=== PATIENT | female | born 1955 | race Caucasian/White ===

== ENCOUNTER 2016-05-21 13:15 | Inpatient (IN) | payer MEDICARE, BC ==
--- NOTE | 2016-05-21 18:08 | History and Physical Report ---
History of Present Illnes - History of Present Illness Reason for Visit: gait disturbance, pneumonia History of Present Illness: 61yo wite female who recetnly was admitted to [facility] for bilateral basilar pneumonia. Was started on triple antibiotic therapy of vancomycin, Zosyn and azithromycin. Blood cultures are no growth, sputum culture report is not known at this time. During her stay patient has become weak and felt that she would benefit from further rehab services. - Past Medical History Cardiac: HTN Pulmonary: COPD REFUND SPECIALIST: CVA, Dementia, Seizure, Other (Parkinson Disease, RLS) Gastrointestinal: GERD Musculoskeletal: Osteoarthritis (generalized) Endocrine: Diabetes (type 2) - Past Surgical History Past Surgical History: Hysterectomy, Other (BTL, D&C, carpal tunnel release, L shoulder surgery, Left total knee replacement) - Past Family History Father Family History: CAD, Mother Family History: denies: Brother 1 Family History: None (good health). denies: Sister 1 Family History: None (good health). denies: - Past Social History Smoke: Quit (1989) Alcohol: None Drugs: None Lives: With Family () - Health Maintenance Health Maintenance: Influenza Vaccine. denies: Pneumococcal Vaccine Influenza Vaccine: Current for this Influenza Season Pneumonia Vaccine: No Resuscitation Status: Resusciation Status Resuscitation Status Full Code - Unable to Obtain History Unable to Obtain: No Review of Systems - Review of Systems Constitutional: Fever, Chills (improved) Eyes: negative: pain, vision change ENT: negative: Ear Discharge, Nose Pain, Nose Discharge, Nose Congestion, Mouth Pain, Mouth Swelling Respiratory: Cough Cardiovascular: negative: Chest Pain, Palpitations, Orthopnea Gastrointestinal: Nausea, Constipation. negative: Vomiting, Abdominal Pain, Diarrhea Genitourinary: negative: Dysuria, Frequency Musculoskeletal: Shoulder Pain, Back Pain. negative: Neck Pain Skin: negative: Rash, Lesions Neurological: Weakness. negative: Numbness, Incoordination - Medications/Allergies Allergies/Adverse Reactions: Allergies Allergy/AdvReac Type Severity Reaction Status Date / Time furosemide [From Lasix] Allergy Verified 05/23/16 09:13 hydrochlorothiazide Allergy Verified 05/23/16 09:13 [From Maxzide] olmesartan medoxomil Allergy Verified 05/23/16 09:13 [From Benicar] triamterene [From Maxzide] Allergy Verified 05/23/16 09:13 Current Inpatient Medications: Current Inpatient Medications Enoxaparin Sodium (Lovenox) 30 mg SQ QD OBED Stop: 06/03/16 18:01 Exam - Exam General: Alert, Oriented to Person, Oriented to Place, Oriented to Time, Cooperative HEENT: Atraumatic, PERRLA, Mouth Mucous membr. moist/[place], Nose Mucous membr. moist/[place], Hearing Grossly Normal Neck: Normal Range of Motion, Lymphadenopathy Carotids: WNL Thyroid: WNL Lungs: Normal air movement, Speaks full Sentences, Rales (rales in te righ base) . No: Wheezes, Rhonchi, Prolonged Expiration Cardiovascular: Regular rate, Normal S1, Normal S2, No murmurs Abdomen: Normal bowel sounds, Soft, No tenderness, No hepatospenomegaly, No masses Integumentary: Normal, [place], Warm, Dry Extremities: No clubbing, No cyanosis, No edema Neurological: Normal speech, Strength Equal Bilat. No: Normal gait Psych/Mental Status: Mental status NL, Appropriate Affect. No: Mood NL ( depressed) Assessment/Plan - Assessment/Plan (1) Pneumonia of both lower lobes Status: Acute Assessment: Will finish IV antibiotics (2) Parkinson disease Status: Acute Assessment: continue wit home meds (3) COPD (chronic obstructive pulmonary disease) Status: Chronic Assessment: continue wit home meds and monitor (4) Essential hypertension Status: Acute Assessment: continue wit home meds and monitor (5) Diabetes type 2, controlled Status: Chronic Qualifiers: Diabetes mellitus complication status: with neurologic complications Diabetes mellitus fpc insulin use: without fpc use (6) Restless leg syndrome Status: Acute Assessment: continue wit home meds (7) Osteoarthritis Status: Acute Assessment: monitor (8) GERD (gastroesophageal reflux disease) Status: Acute Assessment: continue wit home meds (9) Gait difficulty Status: Acute Plan: Pt and OT evaluation VTE Assessment - RISK FACTOR SCORE VTE RISK FACTOR SCORES: AGE OVER 60 YEARS, ACUTE INFECTION OTHER THEN SEPSIS, ANTICIPATED BED CONFINEMENT OR IMMOBILIZATION > 24 HOURS - RISK VTE HIGH RISK: SCORE OF 3-4 (RISK PROXIMAL DVT 4-8%) PROPHYLAXIS NEEDED
[2016-05-21] MEDS ORDERED: PNEUMOCOCCAL 23-VAL IM ONE (18:29)
[2016-05-21 19:05] VITALS: BMI 37.9
[2016-05-21] MEDS: ENOXAPARIN SODIUM 30 MG/0.3 ML DISP.SYRIN SQ SCH (19:32)
[2016-05-21] MEDS: MONTELUKAST SODIUM 10 MG TABLET PO SCH (19:33)
[2016-05-21] MEDS: DEXTROMETHORPHAN HBR/QUINIDINE 1 EACH CAPSULE PO SCH (19:33)
[2016-05-21] MEDS: SIMVASTATIN 40 MG TABLET PO SCH (19:34)
[2016-05-21] MEDS: TOPIRAMATE 50 MG TABLET PO SCH (19:34)
[2016-05-21] MEDS: INSULIN DETEMIR 100 UNIT/ML 3ML PEN.INJCTR SQ SCH (19:56)
[2016-05-21] MEDS ORDERED: VANCOMYCIN HCL 1 GM VIAL IV ONE (20:07)
[2016-05-21] MEDS ORDERED: 0.9 % SODIUM CHLORIDE 250 ML IV ONE (20:07)
[2016-05-21] MEDS ORDERED: PIPERACILLIN SODIUM/TAZOBACTAM 3.375 GM VIAL IV ONE (20:07)
[2016-05-21] MEDS ORDERED: 0.9 % SODIUM CHLORIDE 50 ML IV ONE (20:08)
[2016-05-21] MEDS ORDERED: SALINE FLUSH 10 ML DISP.SYRIN IVF ONE (20:08)
[2016-05-21] MEDS: SODIUM CHLORIDE 0.9% IV SCH (20:22)
[2016-05-21] MEDS: VANCOMYCIN HCL IV SCH (20:22)
[2016-05-21] MEDS: PIPERACILLIN SODIUM/TAZOBACTAM 3.375 GM in 0.9 % SODIUM CHLORIDE 50 ML IV SCH (21:30)
[2016-05-22] MEDS ORDERED: PIPERACILLIN SODIUM/TAZOBACTAM 3.375 GM VIAL IV ONE ×2 (02:16→06:31)
[2016-05-22] MEDS ORDERED: 0.9 % SODIUM CHLORIDE 50 ML IV ONE ×2 (02:17→06:31)
[2016-05-22] MEDS: PIPERACILLIN SODIUM/TAZOBACTAM 3.375 GM in 0.9 % SODIUM CHLORIDE 50 ML IV SCH ×2 (02:30→07:35)
[2016-05-22] MEDS ORDERED: predniSONE 20 MG TABLET PO ONE (05:04)
[2016-05-22] MEDS ORDERED: ASPIRIN EC 81 MG TABLET.DR ONE (05:05)
[2016-05-22] MEDS: PANTOPRAZOLE SODIUM 40 MG TABLET PO SCH (06:08)
[2016-05-22] MEDS: INSULIN REGULAR, HUMAN 100 UNIT/ML 3ML VIAL SQ SCH ×3 (07:30→17:13)
[2016-05-22] MEDS ORDERED: SALINE FLUSH 10 ML DISP.SYRIN IVF ONE ×3 (07:36→14:18)
[2016-05-22] MEDS: ASPIRIN 81 MG CHEW TAB PO SCH (09:13)
[2016-05-22] MEDS: predniSONE 10 MG TABLET PO SCH (09:14)
[2016-05-22] MEDS: TOPIRAMATE 50 MG TABLET PO SCH ×2 (09:15→19:40)
[2016-05-22] MEDS: BACLOFEN 10 MG TABLET PO SCH (09:15)
[2016-05-22] MEDS: DEXTROMETHORPHAN HBR/QUINIDINE 1 EACH CAPSULE PO SCH ×2 (09:18→19:39)
[2016-05-22] MEDS: HEPARIN SODIUM,PORCINE 30 UNITS INJ IV SCH (12:05)
[2016-05-22] MEDS: PIPERACILLIN SODIUM/TAZOBACTAM 3.375 GM in 0.9 % SODIUM CHLORIDE 100 ML IV SCH ×2 (13:02→18:32)
[2016-05-22] MEDS: ACETAMINOPHEN 500 MG TABLET PO PRN (14:15)
[2016-05-22] MEDS: ENOXAPARIN SODIUM 30 MG/0.3 ML DISP.SYRIN SQ SCH (18:13)
[2016-05-22] MEDS: MONTELUKAST SODIUM 10 MG TABLET PO SCH (19:40)
[2016-05-22] MEDS: SIMVASTATIN 40 MG TABLET PO SCH (19:41)
[2016-05-22] MEDS: clonazePAM 0.5 MG TABLET PO PRN (19:41)
[2016-05-22] MEDS: INSULIN DETEMIR 100 UNIT/ML 3ML PEN.INJCTR SQ SCH (19:42)
[2016-05-22] MEDS: VANCOMYCIN HCL IV SCH (21:13)
[2016-05-22] MEDS: SODIUM CHLORIDE 0.9% IV SCH (21:13)
[2016-05-23] MEDS: PIPERACILLIN SODIUM/TAZOBACTAM 3.375 GM in 0.9 % SODIUM CHLORIDE 100 ML IV SCH ×4 (00:53→17:50)
[2016-05-23] MEDS ORDERED: SALINE FLUSH 10 ML DISP.SYRIN IVF ONE ×2 (00:58→17:52)
[2016-05-23] MEDS: clonazePAM 0.5 MG TABLET PO PRN ×2 (01:03→17:57)
[2016-05-23] MEDS: PANTOPRAZOLE SODIUM 40 MG TABLET PO SCH (05:29)
[2016-05-23] MEDS: INSULIN REGULAR, HUMAN 100 UNIT/ML 3ML VIAL SQ SCH ×3 (07:20→16:35)
[2016-05-23] MEDS: BACLOFEN 10 MG TABLET PO SCH (09:05)
[2016-05-23] MEDS: TOPIRAMATE 50 MG TABLET PO SCH ×2 (09:06→21:12)
[2016-05-23] MEDS: predniSONE 10 MG TABLET PO SCH (09:06)
[2016-05-23] MEDS: HEPARIN SODIUM,PORCINE 30 UNITS INJ IV SCH (09:07)
[2016-05-23] MEDS: DEXTROMETHORPHAN HBR/QUINIDINE 1 EACH CAPSULE PO SCH ×2 (09:07→21:13)
[2016-05-23] MEDS: ACETAMINOPHEN 500 MG TABLET PO PRN ×3 (09:10→23:28)
[2016-05-23] MEDS: ASPIRIN 81 MG CHEW TAB PO SCH (09:10)
[2016-05-23] MEDS ORDERED: PNEUMOCOCCAL 23-VAL IM ONE (16:25)
[2016-05-23] MEDS: ENOXAPARIN SODIUM 30 MG/0.3 ML DISP.SYRIN SQ SCH (17:52)
[2016-05-23] MEDS: SODIUM CHLORIDE 0.9% IV SCH (18:50)
[2016-05-23] MEDS: VANCOMYCIN HCL IV SCH (18:50)
[2016-05-23] MEDS: SIMVASTATIN 40 MG TABLET PO SCH (21:12)
[2016-05-23] MEDS: MONTELUKAST SODIUM 10 MG TABLET PO SCH (21:13)
[2016-05-23] MEDS: INSULIN DETEMIR 100 UNIT/ML 3ML PEN.INJCTR SQ SCH (21:16)
[2016-05-24] MEDS ORDERED: SALINE FLUSH 10 ML DISP.SYRIN IVF ONE ×5 (00:14→18:32)
[2016-05-24] MEDS: PIPERACILLIN SODIUM/TAZOBACTAM 3.375 GM in 0.9 % SODIUM CHLORIDE 100 ML IV SCH ×4 (00:14→17:22)
[2016-05-24] MEDS: PANTOPRAZOLE SODIUM 40 MG TABLET PO SCH (05:45)
[2016-05-24] MEDS: INSULIN REGULAR, HUMAN 100 UNIT/ML 3ML VIAL SQ SCH ×3 (08:09→17:24)
[2016-05-24] MEDS: ASPIRIN 81 MG CHEW TAB PO SCH (08:10)
[2016-05-24] MEDS: HEPARIN SODIUM,PORCINE 30 UNITS INJ IV SCH (08:11)
[2016-05-24] MEDS: TOPIRAMATE 50 MG TABLET PO SCH ×2 (08:11→20:57)
[2016-05-24] MEDS: predniSONE 10 MG TABLET PO SCH (08:11)
[2016-05-24] MEDS: DEXTROMETHORPHAN HBR/QUINIDINE 1 EACH CAPSULE PO SCH ×2 (08:12→20:58)
[2016-05-24] MEDS: BACLOFEN 10 MG TABLET PO SCH (08:12)
[2016-05-24] MEDS: clonazePAM 0.5 MG TABLET PO PRN (12:03)
[2016-05-24] MEDS: ENOXAPARIN SODIUM 30 MG/0.3 ML DISP.SYRIN SQ SCH (17:27)
[2016-05-24] MEDS: SODIUM CHLORIDE 0.9% IV SCH (18:35)
[2016-05-24] MEDS: VANCOMYCIN HCL IV SCH (18:35)
[2016-05-24] MEDS: SIMVASTATIN 40 MG TABLET PO SCH (20:57)
[2016-05-24] MEDS: MONTELUKAST SODIUM 10 MG TABLET PO SCH (20:58)
[2016-05-24] MEDS: INSULIN DETEMIR 100 UNIT/ML 3ML PEN.INJCTR SQ SCH (20:59)
[2016-05-25] MEDS: clonazePAM 0.5 MG TABLET PO PRN ×2 (00:19→23:33)
[2016-05-25] MEDS: ACETAMINOPHEN 500 MG TABLET PO PRN ×2 (00:19→23:33)
[2016-05-25] MEDS: PIPERACILLIN SODIUM/TAZOBACTAM 3.375 GM in 0.9 % SODIUM CHLORIDE 100 ML IV SCH ×5 (00:20→23:33)
[2016-05-25] MEDS: PANTOPRAZOLE SODIUM 40 MG TABLET PO SCH (06:12)
[2016-05-25] MEDS ORDERED: SALINE FLUSH 10 ML DISP.SYRIN IVF ONE ×2 (07:28→18:29)
[2016-05-25] MEDS: INSULIN REGULAR, HUMAN 100 UNIT/ML 3ML VIAL SQ SCH ×3 (07:41→16:49)
[2016-05-25] MEDS: TOPIRAMATE 50 MG TABLET PO SCH ×2 (08:55→20:23)
[2016-05-25] MEDS: DEXTROMETHORPHAN HBR/QUINIDINE 1 EACH CAPSULE PO SCH ×2 (08:55→20:26)
[2016-05-25] MEDS: BACLOFEN 10 MG TABLET PO SCH (08:55)
[2016-05-25] MEDS: predniSONE 10 MG TABLET PO SCH (08:55)
[2016-05-25] MEDS: ASPIRIN 81 MG CHEW TAB PO SCH (08:55)
[2016-05-25] MEDS ORDERED: predniSONE 10 MG TABLET PO SCH (09:00)
[2016-05-25] MEDS: HEPARIN SODIUM,PORCINE 30 UNITS INJ IV SCH (10:47)
[2016-05-25] MEDS ORDERED: 0.9 % SODIUM CHLORIDE 200 ML IV ONE (18:01)
[2016-05-25] MEDS: ENOXAPARIN SODIUM 30 MG/0.3 ML DISP.SYRIN SQ SCH (18:26)
[2016-05-25] MEDS: INSULIN DETEMIR 100 UNIT/ML 3ML PEN.INJCTR SQ SCH (20:23)
[2016-05-25] MEDS: MONTELUKAST SODIUM 10 MG TABLET PO SCH (20:23)
[2016-05-25] MEDS: SIMVASTATIN 40 MG TABLET PO SCH (20:23)
[2016-05-25] MEDS: VANCOMYCIN HCL IV SCH (20:25)
[2016-05-25] MEDS: SODIUM CHLORIDE 0.9% IV SCH (20:25)
[2016-05-26] MEDS: PIPERACILLIN SODIUM/TAZOBACTAM 3.375 GM in 0.9 % SODIUM CHLORIDE 100 ML IV SCH ×3 (06:00→18:24)
[2016-05-26] MEDS ORDERED: SALINE FLUSH 10 ML DISP.SYRIN IVF ONE (07:43)
[2016-05-26] MEDS: PANTOPRAZOLE SODIUM 40 MG TABLET PO SCH (07:43)
[2016-05-26] MEDS: INSULIN REGULAR, HUMAN 100 UNIT/ML 3ML VIAL SQ SCH ×3 (08:47→16:44)
[2016-05-26] MEDS ORDERED: 0.9 % SODIUM CHLORIDE 100 ML IV ONE (09:13)
[2016-05-26] MEDS: BACLOFEN 10 MG TABLET PO SCH (09:18)
[2016-05-26] MEDS: DEXTROMETHORPHAN HBR/QUINIDINE 1 EACH CAPSULE PO SCH ×2 (09:18→23:04)
[2016-05-26] MEDS: ASPIRIN 81 MG CHEW TAB PO SCH (09:18)
[2016-05-26] MEDS: predniSONE 10 MG TABLET PO SCH (09:18)
[2016-05-26] MEDS: TOPIRAMATE 50 MG TABLET PO SCH ×2 (09:19→22:00)
[2016-05-26] MEDS: HEPARIN SODIUM,PORCINE 30 UNITS INJ IV SCH (09:31)
[2016-05-26] MEDS ORDERED: PIPERACILLIN SODIUM/TAZOBACTAM 3.375 GM VIAL IV ONE (09:44)
[2016-05-26] MEDS ORDERED: 0.9 % SODIUM CHLORIDE 200 ML IV ONE (09:55)
[2016-05-26] MEDS: ENOXAPARIN SODIUM 30 MG/0.3 ML DISP.SYRIN SQ SCH (18:23)
[2016-05-26] MEDS: SODIUM CHLORIDE 0.9% IV SCH (22:00)
[2016-05-26] MEDS: SIMVASTATIN 40 MG TABLET PO SCH (22:00)
[2016-05-26] MEDS: VANCOMYCIN HCL IV SCH (22:00)
[2016-05-26] MEDS: MONTELUKAST SODIUM 10 MG TABLET PO SCH (22:00)
[2016-05-26] MEDS: clonazePAM 0.5 MG TABLET PO PRN (22:00)
[2016-05-26] MEDS: ACETAMINOPHEN 500 MG TABLET PO PRN (22:00)
[2016-05-27] MEDS: INSULIN DETEMIR 100 UNIT/ML 3ML PEN.INJCTR SQ SCH ×2 (00:28→21:03)
[2016-05-27] MEDS ORDERED: SALINE FLUSH 10 ML DISP.SYRIN IVF ONE ×4 (01:30→19:22)
[2016-05-27] MEDS: PIPERACILLIN SODIUM/TAZOBACTAM 3.375 GM in 0.9 % SODIUM CHLORIDE 100 ML IV SCH ×5 (05:00→18:09)
[2016-05-27] MEDS: PANTOPRAZOLE SODIUM 40 MG TABLET PO SCH (06:26)
[2016-05-27] MEDS: TOPIRAMATE 50 MG TABLET PO SCH ×2 (08:30→20:55)
[2016-05-27] MEDS: INSULIN REGULAR, HUMAN 100 UNIT/ML 3ML VIAL SQ SCH ×3 (08:30→18:31)
[2016-05-27] MEDS: predniSONE 10 MG TABLET PO SCH (08:31)
[2016-05-27] MEDS: ASPIRIN 81 MG CHEW TAB PO SCH (08:31)
[2016-05-27] MEDS: BACLOFEN 10 MG TABLET PO SCH (08:32)
[2016-05-27] MEDS: HEPARIN SODIUM,PORCINE 30 UNITS INJ IV SCH (08:32)
[2016-05-27] MEDS: DEXTROMETHORPHAN HBR/QUINIDINE 1 EACH CAPSULE PO SCH ×2 (08:32→20:57)
[2016-05-27] MEDS: ENOXAPARIN SODIUM 30 MG/0.3 ML DISP.SYRIN SQ SCH (18:08)
[2016-05-27] MEDS: VANCOMYCIN HCL IV SCH (20:05)
[2016-05-27] MEDS: SODIUM CHLORIDE 0.9% IV SCH (20:05)
[2016-05-27] MEDS: MONTELUKAST SODIUM 10 MG TABLET PO SCH (20:55)
[2016-05-27] MEDS: SIMVASTATIN 40 MG TABLET PO SCH (20:55)
[2016-05-27] MEDS: ACETAMINOPHEN 500 MG TABLET PO PRN (21:03)
[2016-05-27] MEDS: clonazePAM 0.5 MG TABLET PO PRN (21:03)
[2016-05-28] MEDS ORDERED: SALINE FLUSH 10 ML DISP.SYRIN IVF ONE ×2 (00:25→05:14)
[2016-05-28] MEDS: PIPERACILLIN SODIUM/TAZOBACTAM 3.375 GM in 0.9 % SODIUM CHLORIDE 100 ML IV SCH ×4 (00:35→17:59)
[2016-05-28] MEDS: SALINE FLUSH 10 ML DISP.SYRIN IV PRN ×2 (06:09→18:06)
[2016-05-28] MEDS: PANTOPRAZOLE SODIUM 40 MG TABLET PO SCH (06:10)
[2016-05-28] MEDS: INSULIN REGULAR, HUMAN 100 UNIT/ML 3ML VIAL SQ SCH ×3 (07:24→16:30)
[2016-05-28] MEDS: predniSONE 10 MG TABLET PO SCH (08:45)
[2016-05-28] MEDS: BACLOFEN 10 MG TABLET PO SCH (08:45)
[2016-05-28] MEDS: DEXTROMETHORPHAN HBR/QUINIDINE 1 EACH CAPSULE PO SCH ×2 (08:46→20:23)
[2016-05-28] MEDS: ASPIRIN 81 MG CHEW TAB PO SCH (08:46)
[2016-05-28] MEDS: TOPIRAMATE 50 MG TABLET PO SCH ×2 (08:46→20:23)
[2016-05-28] MEDS: HEPARIN SODIUM,PORCINE 30 UNITS INJ IV SCH (08:47)
[2016-05-28] MEDS: NYSTATIN POWDER BOTTLE TP SCH (10:45)
[2016-05-28] MEDS: ENOXAPARIN SODIUM 30 MG/0.3 ML DISP.SYRIN SQ SCH (17:59)
[2016-05-28] MEDS: SODIUM CHLORIDE 0.9% IV SCH (19:06)
[2016-05-28] MEDS: VANCOMYCIN HCL IV SCH (19:06)
[2016-05-28] MEDS: clonazePAM 0.5 MG TABLET PO PRN (20:23)
[2016-05-28] MEDS: SIMVASTATIN 40 MG TABLET PO SCH (20:23)
[2016-05-28] MEDS: ACETAMINOPHEN 500 MG TABLET PO PRN (20:23)
[2016-05-28] MEDS: MONTELUKAST SODIUM 10 MG TABLET PO SCH (20:23)
[2016-05-28] MEDS: INSULIN DETEMIR 100 UNIT/ML 3ML PEN.INJCTR SQ SCH (20:28)
[2016-05-29] MEDS: PIPERACILLIN SODIUM/TAZOBACTAM 3.375 GM in 0.9 % SODIUM CHLORIDE 100 ML IV SCH ×4 (00:08→18:58)
[2016-05-29] MEDS: NYSTATIN POWDER BOTTLE TP SCH ×3 (01:21→21:16)
[2016-05-29] MEDS: PANTOPRAZOLE SODIUM 40 MG TABLET PO SCH (06:08)
[2016-05-29] MEDS: INSULIN REGULAR, HUMAN 100 UNIT/ML 3ML VIAL SQ SCH ×3 (07:49→17:06)
[2016-05-29] MEDS: ASPIRIN 81 MG CHEW TAB PO SCH (09:19)
[2016-05-29] MEDS: predniSONE 10 MG TABLET PO SCH (09:20)
[2016-05-29] MEDS: BACLOFEN 10 MG TABLET PO SCH (09:20)
[2016-05-29] MEDS: TOPIRAMATE 50 MG TABLET PO SCH ×2 (09:22→21:38)
[2016-05-29] MEDS: DEXTROMETHORPHAN HBR/QUINIDINE 1 EACH CAPSULE PO SCH ×2 (09:27→21:27)
[2016-05-29] MEDS: HEPARIN SODIUM,PORCINE 30 UNITS INJ IV SCH (09:29)
[2016-05-29] MEDS ORDERED: SENNOSIDES 8.6 MG TABLET PO ONE (12:58)
--- NOTE | 2016-05-29 12:59 | Inpatient Progress Note ---
Subjective - Required Recertification Statement I anticipate X number of days because-include discharge plan: 20 - Review of Systems Events since last encounter: Patient continues to do well at this time. Patient continues to require oxygen therapy. Patient ambulatory status is slowly improving. Patient diabetes mellitus has been stable. Patient has developed a rash under her breath consistent with Angelita infection. Pulmonary: Dyspnea (with exertion), Cough. Denies: Pleuritic Chest Pain Cardiovascular: Denies: Chest Pain Gastrointestinal: Denies: Abdominal Pain, Constipation Objective - Exam Vitals and I&O: Vital Signs Temp 97.6 F 05/29/16 09:00 Pulse 80 05/29/16 09:00 Resp 20 05/29/16 09:00 BP 163/71 05/29/16 09:00 Pulse Ox 91 L 05/29/16 09:00 Intake & Output 05/28/16 05/29/16 05/29/16 23:59 11:59 23:59 Intake Total 240 240 Balance 240 240 Intake: Oral 240 240 Other: Voiding Method Toilet # Voids 6 # Bowel Movements 1 General: Alert, Oriented to Person, Cooperative Neck: Supple Lungs: Clear to auscultation, Normal air movement, Speaks full Sentences. No: Wheezes, Rales, Rhonchi Cardiovascular: Regular rate, Normal S1, Normal S2 Abdomen: Normal bowel sounds, Soft, No tenderness Skin: Other (monial rash under breast) Neurological: Generalized Weakness Psych/Mental Status: Mental status NL, Mood NL, Appropriate Affect, Intact Judgment - Results Results: Laboratory Results Vancomycin Trough 6.7 ug/mL (10.0-20.0) L 05/22/16 21:00 Assessment/Plan - Assessment/Plan (1) Gait difficulty Status: Acute Assessment: improved (2) Pneumonia of both lower lobes Status: Acute Assessment: stable (3) Parkinson disease Status: Acute Assessment: stable (4) COPD (chronic obstructive pulmonary disease) Status: Chronic Assessment: stable (5) Essential hypertension Status: Acute (6) Diabetes type 2, controlled Status: Chronic Qualifiers: Diabetes mellitus complication status: with neurologic complications Diabetes mellitus usp insulin use: without usp use Assessment: stable (7) Osteoarthritis Status: Acute Assessment: stable (8) Monilia infection Status: Acute Assessment: started treatment
--- NOTE | 2016-05-29 12:59 | Inpatient Progress Note ---
Subjective - Required Recertification Statement I anticipate X number of days because-include discharge plan: 10 - Review of Systems Events since last encounter: Patient continued to do well at this time. Patient continued with antibiotic therapy at this time. The money appears to be resolving. Patient's ability to ambulate and transfer is improved. General: Denies: Chills Gastrointestinal: Denies: Nausea, Vomiting, Constipation Objective - Exam Vitals and I&O: Vital Signs Temp 97.6 F 05/29/16 09:00 Pulse 80 05/29/16 09:00 Resp 20 05/29/16 09:00 BP 163/71 05/29/16 09:00 Pulse Ox 91 L 05/29/16 09:00 Intake & Output 05/28/16 05/29/16 05/29/16 23:59 11:59 23:59 Intake Total 240 240 Balance 240 240 Intake: Oral 240 240 Other: Voiding Method Toilet # Voids 6 # Bowel Movements 1 General: Alert, Oriented to Person, Oriented to Place, Oriented to Time, Cooperative Neck: Supple Lungs: Clear to auscultation, Normal air movement, Speaks full Sentences. No: Respiratory Distress, Wheezes, Rales, Rhonchi Cardiovascular: Regular rate, Normal S1, Normal S2, No murmurs - Results Results: Laboratory Results Vancomycin Trough 6.7 ug/mL (10.0-20.0) L 05/22/16 21:00 Assessment/Plan - Assessment/Plan (1) Pneumonia of both lower lobes Status: Acute Assessment: Improved (2) Parkinson disease Status: Acute Assessment: stable (3) COPD (chronic obstructive pulmonary disease) Status: Chronic Assessment: stable (4) Essential hypertension Status: Acute (5) Diabetes type 2, controlled Status: Chronic Qualifiers: Diabetes mellitus complication status: with neurologic complications Diabetes mellitus fpc insulin use: without fpc use Assessment: stable (6) Osteoarthritis Status: Acute (7) Gait difficulty Status: Acute
[2016-05-29] MEDS: ENOXAPARIN SODIUM 30 MG/0.3 ML DISP.SYRIN SQ SCH (17:35)
[2016-05-29] MEDS ORDERED: VANCOMYCIN HCL 1.25 GM in 0.9 % SODIUM CHLORIDE 500 ML IV ONE (20:24)
[2016-05-29] MEDS ORDERED: VANCOMYCIN HCL 1 GM VIAL IV ONE (20:54)
[2016-05-29] MEDS ORDERED: 0.9 % SODIUM CHLORIDE 250 ML IV ONE (20:55)
[2016-05-29] MEDS: SALINE FLUSH 10 ML DISP.SYRIN IV PRN (21:19)
[2016-05-29] MEDS: SIMVASTATIN 40 MG TABLET PO SCH (21:28)
[2016-05-29] MEDS: INSULIN DETEMIR 100 UNIT/ML 3ML PEN.INJCTR SQ SCH (21:35)
[2016-05-29] MEDS: ACETAMINOPHEN 500 MG TABLET PO PRN (21:38)
[2016-05-29] MEDS: clonazePAM 0.5 MG TABLET PO PRN (21:38)
[2016-05-29] MEDS: MONTELUKAST SODIUM 10 MG TABLET PO SCH (21:38)
[2016-05-30] MEDS: PIPERACILLIN SODIUM/TAZOBACTAM 3.375 GM in 0.9 % SODIUM CHLORIDE 100 ML IV SCH ×4 (00:21→17:22)
[2016-05-30] MEDS: SALINE FLUSH 10 ML DISP.SYRIN IV PRN ×2 (01:00→05:54)
[2016-05-30] MEDS: clonazePAM 0.5 MG TABLET PO PRN (04:11)
[2016-05-30] MEDS: PANTOPRAZOLE SODIUM 40 MG TABLET PO SCH (05:52)
[2016-05-30] MEDS: INSULIN REGULAR, HUMAN 100 UNIT/ML 3ML VIAL SQ SCH ×3 (07:12→16:28)
[2016-05-30] MEDS: ASPIRIN 81 MG CHEW TAB PO SCH (09:26)
[2016-05-30] MEDS: predniSONE 10 MG TABLET PO SCH (09:27)
[2016-05-30] MEDS: TOPIRAMATE 50 MG TABLET PO SCH ×2 (09:28→21:27)
[2016-05-30] MEDS: DEXTROMETHORPHAN HBR/QUINIDINE 1 EACH CAPSULE PO SCH ×2 (09:28→21:28)
[2016-05-30] MEDS: BACLOFEN 10 MG TABLET PO SCH (09:29)
[2016-05-30] MEDS: NYSTATIN POWDER BOTTLE TP SCH ×2 (09:29→21:28)
[2016-05-30] MEDS: HEPARIN SODIUM,PORCINE 30 UNITS INJ IV SCH (10:20)
[2016-05-30] MEDS ORDERED: LORATADINE 10 MG TABLET PO ONE (13:18)
[2016-05-30] MEDS: ENOXAPARIN SODIUM 30 MG/0.3 ML DISP.SYRIN SQ SCH (17:18)
[2016-05-30] MEDS ORDERED: VANCOMYCIN HCL 1.25 GM in 0.9 % SODIUM CHLORIDE 500 ML IV ONE (20:00)
[2016-05-30] MEDS: SIMVASTATIN 40 MG TABLET PO SCH (21:27)
[2016-05-30] MEDS: MONTELUKAST SODIUM 10 MG TABLET PO SCH (21:27)
[2016-05-30] MEDS: INSULIN DETEMIR 100 UNIT/ML 3ML PEN.INJCTR SQ SCH (21:31)
[2016-05-30] MEDS ORDERED: 0.9 % SODIUM CHLORIDE 250 ML IV ONE (21:38)
[2016-05-31] MEDS: PIPERACILLIN SODIUM/TAZOBACTAM 3.375 GM in 0.9 % SODIUM CHLORIDE 100 ML IV SCH ×2 (00:03→06:20)
[2016-05-31] MEDS: clonazePAM 0.5 MG TABLET PO PRN (00:03)
[2016-05-31] MEDS: PANTOPRAZOLE SODIUM 40 MG TABLET PO SCH (06:20)
[2016-05-31] MEDS: INSULIN REGULAR, HUMAN 100 UNIT/ML 3ML VIAL SQ SCH (08:22)
[2016-05-31 10:42] VITALS: BP 167/63
--- NOTE | 2016-06-26 08:13 | Discharge Summary ---
Discharge Summary - Discharge Sumary History of Present Illness: 61yo wite female who recetnly was admitted to [facility] for bilateral basilar pneumonia. Was started on triple antibiotic therapy of vancomycin, Zosyn and azithromycin. Blood cultures are no growth, sputum culture report is not known at this time. During her stay patient has become weak and felt that she would benefit from further rehab services. Patient will be continued IV antibiotic therapy at this time to finish the course of it via PICC. Home Medications: Ambulatory Orders Medication Instructions Recorded Carbidopa/Levodopa 06/19/12 [Carbidopa-Levodopa 25-100 Tab] Escitalopram Oxalate [Lexapro] 06/19/12 Glyburide [Diabeta] 5 mg PO 06/19/12 Lansoprazole 06/19/12 Lisinopril [Prinivil] 10 mg PO 06/19/12 Metformin HCl [Fortamet] 500 mg PO 06/19/12 Ropinirole HCl 06/19/12 Simvastatin [Zocor] 5 mg PO 06/19/12 Topiramate 06/19/12 Acetaminophen [Tylenol Extra 500 mg PO TID PRN #0 tablet 05/31/16 Strength] Aspirin [Shantal] 81 mg PO DAILY tab.chew 05/31/16 Baclofen [Liorasal] 10 mg PO D tablet 05/31/16 Dextromethorphan HBr/Quinidine 1 each PO BID capsule 05/31/16 [Nuedexta] Insulin Detemir [Levemir Flex-Pen] 10 unit SQ HS pen.injctr 05/31/16 Montelukast Sodium [Singulair] 10 mg PO HS tablet 05/31/16 Nystatin Powder [Nystop] 1 applic TP BID PRN #1 bottle 05/31/16 clonazePAM [Klonopin] 0.5 mg PO BID PRN #0 tablet 05/31/16 Procedures this Visit: None Allergies/Adverse Reactions: Allergies Allergy/AdvReac Type Severity Reaction Status Date / Time furosemide [From Lasix] Allergy Verified 05/23/16 09:13 hydrochlorothiazide Allergy Verified 05/23/16 09:13 [From Maxzide] olmesartan medoxomil Allergy Verified 05/23/16 09:13 [From Benicar] triamterene [From Maxzide] Allergy Verified 05/23/16 09:13 Discharge Summary: Patient did well during SNF course. Patient was able and willing to participate in PT and OT services. At the time of discharge she was ambulating with the aid of a walker. It was felt that she could benefit form Home Health OT and PT for a short period of time. Patient's breathing status remained stable but patient required oxygen at 2 liters per NC to keep SaO2 > 90% most of the time, especially with ambulation. Off of oxygen with ambulation SaO2 dropped into the 88%, recovered to 94% with oxygen. Patient was continued on vancomycin and pipracillin to finish the course of it. Then PICC line was removed. 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 Patient did continue to have a mild nonproductive cough. Parkinson's disease remained stable on her home medications. Diabetes was stable with blood sugars in the 100s. No hypglycemic episodes noted. - Final Diagnosis (1) Pneumonia of both lower lobes Problems: Improved (2) Parkinson disease Problems: Stable on home meds (3) COPD (chronic obstructive pulmonary disease) Problems: stable (5) Diabetes type 2, controlled Problems: stable
--- NOTE | 2016-07-20 08:12 | Inpatient Progress Note ---
Subjective - Required Recertification Statement I anticipate X number of days because-include discharge plan: 14 - Review of Systems Events since last encounter: Patient continued to make some slow improvement with her amatory ability. Patient Breezy appeared to be doing well at this time. Diabetes mellitus has been stable without a hyper hypoglycemic episodes. Hypertension has been stable without any chest pain or chest pressure. Osteoarthritis is stable. COPD is stable. Objective - Exam Vitals and I&O: Vital Signs Temp 97.7 F 05/31/16 09:36 Pulse 87 05/31/16 09:36 Resp 18 05/31/16 09:36 BP 164/68 05/31/16 09:36 Pulse Ox 93 05/31/16 09:36 General: Alert, Oriented to Person, Oriented to Place, Oriented to Time, Cooperative HEENT: Mouth Mucous membr. moist/[place] Neck: Supple, No JVD, No thyromegaly Lungs: Clear to auscultation, Normal air movement, Speaks full Sentences Cardiovascular: Regular rate, Normal S1, Normal S2, No murmurs Abdomen: Normal bowel sounds, Soft, No tenderness, No hepatospenomegaly, No masses Extremities: No clubbing Skin: Normal, [place], Warm, Dry Neurological: Normal speech, Strength Equal Bilat, Normal tone, Sensation intact Psych/Mental Status: Mental status NL, Mood NL, Appropriate Affect, Intact Judgment - Results Results: Laboratory Results Vancomycin Trough 6.7 ug/mL (10.0-20.0) L 05/22/16 21:00 Assessment/Plan - Assessment/Plan (1) Gait difficulty Status: Acute Assessment: slowly improving (2) Pneumonia of both lower lobes Status: Acute Assessment: resolved (3) Parkinson disease Status: Acute Assessment: stable (4) COPD (chronic obstructive pulmonary disease) Status: Chronic Narrative Support Text: stable (5) Essential hypertension Status: Acute Assessment: stable (6) Diabetes type 2, controlled Status: Chronic Qualifiers: Diabetes mellitus complication status: with neurologic complications Diabetes mellitus intermission coordinator insulin use: without intermission coordinator use Assessment: stable (7) Osteoarthritis Status: Acute (8) Monilia infection Status: Acute Assessment: improved
--- NOTE | 2016-07-20 08:14 | Inpatient Progress Note ---
Subjective - Required Recertification Statement I anticipate X number of days because-include discharge plan: 10 - Review of Systems Events since last encounter: Patient continues to do well. She does not voice any complaints at this time. Patient chronic medical problems and stable. Objective - Exam Vitals and I&O: Vital Signs Temp 97.7 F 05/31/16 09:36 Pulse 87 05/31/16 09:36 Resp 18 05/31/16 09:36 BP 164/68 05/31/16 09:36 Pulse Ox 93 05/31/16 09:36 General: Alert, Oriented to Person, Oriented to Place, Oriented to Time, Cooperative Neck: Supple Lungs: Clear to auscultation, Normal air movement, Speaks full Sentences. No: Wheezes, Rales, Rhonchi Cardiovascular: Regular rate, Normal S1, Normal S2, No murmurs Abdomen: Normal bowel sounds, Soft, No tenderness - Results Results: Laboratory Results Vancomycin Trough 6.7 ug/mL (10.0-20.0) L 05/22/16 21:00 Assessment/Plan - Assessment/Plan (1) Gait difficulty Status: Acute Assessment: stable (2) Pneumonia of both lower lobes Status: Acute (3) Parkinson disease Status: Acute Assessment: stable (4) COPD (chronic obstructive pulmonary disease) Status: Chronic Assessment: stable (5) Essential hypertension Status: Acute Assessment: stable (6) Diabetes type 2, controlled Status: Chronic Qualifiers: Diabetes mellitus complication status: with neurologic complications Diabetes mellitus superintendent marine oil terminal insulin use: without chcf use (7) Osteoarthritis Status: Acute (8) Monilia infection Status: Acute
== END 2016-05-31 10:42 | disposition home or self-care (01) | DRG 195 ==
LOC: UNDOADMIN 13:15 → SOUTH 13:15
PROVIDERS: ADMIT Family Medicine; ATTEND Family Medicine
DX: J18.9 Pneumonia, unspecified organism (principal); G20 Parkinson's disease; J44.9 Chronic obstructive pulmonary disease, unspecified; E11.9 Type 2 diabetes mellitus without complications
CPT/HCPCS: 80202; 90732; J1650; J1815; J3370; J3490; J7050; J7060; J2543; J7512

== ENCOUNTER 2017-05-29 10:01 | Emergency (ER) | payer BC, OTHER ==
--- NOTE | 2017-05-29 10:22 | ED Physician Documentation ---
General Adult - HISTORIAN Historian: patient - HPI Stated Complaint: fall, R rib pain Chief Complaint: General Adult Onset: days ago (1) Timing: still present Severity: moderate Further Comments: yes (Pt is a 62 yo wheelchair patient with Parkinson's dz, restless leg, frequent falls, who fell in her bathroom yesterday and struck her R side against the toilet. Pt has R lower rib pain. She says it hurts to move and to take a breath.) - ROS CONST: no problems EYES/ENT: none CVS/RESP: other (R chest wall/rib pain) GI/: none MS/SKIN/LYMPH: other (R rib pain) - PAST HX Past History: other (COPD, DM, Parkinson's, Restless leg syndrome, HLD, depression, GERD.) Allergies/Adverse Reactions: Allergies Allergy/AdvReac Type Severity Reaction Status Date / Time furosemide [From Lasix] Allergy Verified 05/29/17 11:00 hydrochlorothiazide Allergy Verified 05/29/17 11:00 [From Maxzide] olmesartan medoxomil Allergy Verified 05/29/17 11:00 [From Benicar] triamterene [From Maxzide] Allergy Verified 05/29/17 11:00 Home Medications: Ambulatory Orders Medication Instructions Recorded Carbidopa/Levodopa 2.5 - 100 mg PO TID 06/19/12 [Carbidopa-Levodopa 25-100 Tab] Escitalopram Oxalate [Lexapro] 20 mg PO BID 06/19/12 Glyburide [Diabeta] 5 mg PO QDAY 06/19/12 Lansoprazole 06/19/12 Lisinopril [Prinivil] 10 mg PO QDAY 06/19/12 Metformin HCl [Fortamet] 500 mg PO HS 06/19/12 Ropinirole HCl 0.5 mg PO TID 06/19/12 Simvastatin [Zocor] 5 mg PO 06/19/12 Topiramate 150 mg PO BID 06/19/12 Acetaminophen [Tylenol Extra 500 mg PO TID PRN #0 tablet 05/31/16 Strength] Insulin Detemir [Levemir Flex-Pen] 10 unit SQ HS pen.injctr 05/31/16 Montelukast Sodium [Singulair] 10 mg PO HS tablet 05/31/16 Albuterol Sulfate [VoSpire ER] 4 mg PO BID 05/29/17 Aspirin [Shantal] 325 mg PO DAILY 05/29/17 Omeprazole [Prilosec] 20 mg PO BID 05/29/17 - SOCIAL HX Smoking History: quit greater than 1 year - FAMILY HX Family History: No - VITAL SIGNS Vital Signs: Vital Signs Temp Pulse Resp BP Pulse Ox 164/68 05/31/16 09:36 - REVIEWED ASSESSMENTS Nursing Assessment Reviewed: Yes Vitals Reviewed: Yes Progress - Progress Progress: [place] (). 2 tabs in ER. X-ray chest, R ribs: 9th rib fracture. No acute pulmonary process. Rx Percocet (). 1-2 po q 4-6 h prn #20. General Adult Physical Exam - PHYSICAL EXAM GENERAL APPEARANCE: moderate distress NECK: normal inspection, supple RESPIRATORY: no resp distress, breath sounds normal, other (R lower rib/chest wall tenderness) CVS: reg rate & rhythm, heart sounds normal ABDOMEN: soft, no organomegaly, normal bowel sounds BACK: normal inspection SKIN: warm/dry, normal color EXTREMITIES: non-tender, no evidence of injury NEURO: oriented X3, motor nml, sensation nml Discharge Clincal Impression: 9th R rib fracture Referrals: Primary Doctor,No [Primary Care Provider] - Condition: Stable Disposition: 01 HOME, SELF-CARE Decision to Admit: NO Decision Time: 11:30
[2017-05-29] MEDS ORDERED: HYDROcodone /APAP 5/325 1 EACH TABLET PO ONE (10:24)
[2017-05-29 11:37] VITALS: BP 130/61
--- NOTE | 2017-05-30 07:10 | Diagnostic Imaging Report ---
JESSICA GIORDANO [facility] [address] [facility].[address] [address] Report Submission Date: May 29, 2017 11:12:59 AM CDT Patient Study Name: RONALD CHRISTIANSON Date: May 29, 2017 10:47:10 AM CDT Modality Type: DX Gender: F Description: CHEST : 51 Institution: [facility] Physician: JESSICA GIORDANO Examination: Plain film chest/right ribs History: RT RIBS, PA CHEST, RT SIDED RIB PAIN AFTER FALL (Hx) Findings: 4 views of the chest and right ribs demonstrates fracture involving the lateral margin of the 9th rib. No other fracture or dislocation. Underlying parenchymal without abnormality. No focal infiltrative process. Mild thickening of the right minor fissure. Vascular calcifications involving the aortic arch. Articular degenerative changes. Impression: 9th rib fracture. No acute pulmonary process. Electronically signed on May 29, 2017 11:12:59 AM CDT by: Nik MCMAHON
== END 2017-05-29 11:31 | disposition home or self-care (01) ==
LOC: ED 10:01
DX: S22.31XA Fracture of one rib, right side, initial encounter for closed fracture (principal); W19.XXXA Unspecified fall, initial encounter; Y92.9 Unspecified place or not applicable
CPT/HCPCS: 71101; A9270; 99283

== ENCOUNTER 2017-06-26 06:42 | Emergency (ER) | payer OTHER ==
[2017-06-26 07:06] VITALS: BP 168/63
[2017-06-26] MEDS ORDERED: LIDOCAINE 1%/EPINEPHRINE 20ML VIAL IJ ONE (07:49)
--- NOTE | 2017-06-26 08:06 | ED Physician Documentation ---
Fall - HISTORIAN Historian: patient, spouse - HPI Stated Complaint: Fall Chief Complaint: Fall Onset: just prior to arrival Where: home Context: slipped r: moderate Associated Symptoms:: no loss of consciousness Location of Pain/Injury: head Injury to Right Extremity: none Injury to Left Extremity: none Further Comments: yes (62 year old female patient presents after a fall at home. Patient slipped and hit the back of her head on the piano bench. Denies LOC. C/O headache.) - ROS CONST: no problems NEURO: denies: dizziness, anxiety, depression, other MS/SKIN/LYMPH: weakness. denies: neck pain, back pain, ankle swelling, leg swelling EYES/ENT: none CVS/RESP: none GI/: denies: problems urinating, nausea, vomiting, other - PAST HX Past History: diabetes Type 2, COPD, other (COPD, Parkinson's, Restless leg syndrome, frequent falls, HLD, depression, GERD, HTN) Allergies/Adverse Reactions: Allergies Allergy/AdvReac Type Severity Reaction Status Date / Time furosemide [From Lasix] Allergy Verified 06/26/17 07:06 hydrochlorothiazide Allergy Verified 06/26/17 07:06 [From Maxzide] olmesartan medoxomil Allergy Verified 06/26/17 07:06 [From Benicar] triamterene [From Maxzide] Allergy Verified 06/26/17 07:06 Home Medications: Ambulatory Orders Medication Instructions Recorded Carbidopa/Levodopa 2.5 - 100 mg PO TID 06/19/12 [Carbidopa-Levodopa 25-100 Tab] Escitalopram Oxalate [Lexapro] 20 mg PO BID 06/19/12 Glyburide [Diabeta] 5 mg PO QDAY 06/19/12 Lansoprazole 1 tab PO DAILY 06/19/12 Lisinopril [Prinivil] 10 mg PO QDAY 06/19/12 Metformin HCl [Fortamet] 500 mg PO HS 06/19/12 Ropinirole HCl 0.5 mg PO TID 06/19/12 Simvastatin [Zocor] 5 mg PO DAILY 06/19/12 Topiramate 150 mg PO BID 06/19/12 Acetaminophen [Tylenol Extra 500 mg PO TID PRN #0 tablet 05/31/16 Strength] Insulin Detemir [Levemir Flex-Pen] 10 unit SQ HS pen.injctr 05/31/16 Montelukast Sodium [Singulair] 10 mg PO HS tablet 05/31/16 Albuterol Sulfate [VoSpire ER] 4 mg PO BID 05/29/17 Aspirin [Shantal] 325 mg PO DAILY 05/29/17 Omeprazole [Prilosec] 20 mg PO BID 05/29/17 - SOCIAL HX Smoking History: non-smoker - FAMILY HX Family History: none - VITAL SIGNS Vital Signs: Vital Signs Temp Pulse Resp BP Pulse Ox 88 17 168/63 93 06/26/17 06:45 06/26/17 06:45 06/26/17 06:45 06/26/17 06:45 - REVIEWED ASSESSMENTS Nursing Assessment Reviewed: Yes Vitals Reviewed: Yes Procedures Wound Location: other (scalp) Wound Length: 2 Wound's Depth, Shape: linear Irrigated w/ Saline (ccs): 1,000 Betadine Prep?: No (chlorhexidine) Anesthesia: Lidocaine w/ Epi Volume of Anesthetic: 8 Wound Repaired With: mason (x 3) Progress: 2 mobile nodule noted in occipital area. reports 1 nodule was removed; "they are going to remove the others". No erythema or drainage noted from area. Progress - Progress Progress: Copious amounts of dandruff and clotted blood over parietal scalp area. Hair washed and cleaned by nursing multiple times with chlorhexidine and H2O2. ED Results Lab/Radiology - Radiology Radiology Impressions: Examination: CT head without contrast History: FAll, posterior wound (Hx) Comparison exam: None available Technique: Noncontrast head CT protocol. Findings: Ventricles and sulci are consistent for patient age. Cerebrocerebellar parenchyma demonstrates periventricular low attenuation consistent with small vessel disease. No evidence for parenchymal hemorrhage. No evidence for mass or mass effect. No midline shift. No extra axial fluid collections. Partial visualization of the paranasal sinuses demonstrates scattered mucous thickening with bilateral maxillary sinus air fluid levels. Mastoid air cells, orbits, and skull without gross irregularity. Hyperostosis frontalis interna. Posterior scalp hematoma. Impression: Age related changes. No acute parenchymal process. No hemorrhage. Posterior scalp hematoma. Electronically signed on June 26, 2017 7:46:15 AM CDT by: Nik Clark - Orders Orders: ED Orders Category Date Time Status CT BRAIN W/O CONTRAST Stat Exams 06/26/17 Taken Lidocaine 1%/Epinephrine [Xylocaine 1%-EPI 1:100,000] Med 06/26/17 07:49 Discontinued 1 ml IJ NOW ONE Fall Physical Exam - Physical Exam General Appearance: moderate distress Head: non-tender, no swelling, no obvious injury Neck: non-tender, painless ROM, trachea midline Eye: ISABEL, EOMI, lids & conjunct. nml Resp/CVS: chest non-tender, no ecchymosis, breath sounds nml, no resp. distress , heart sounds nml Abdomen: soft, no organomegaly, normal bowel sounds, no abdominal bruit, no distension Neuro: oriented x3, sensation nml, motor nml, mood/affect nml, handy worker nml, handy worker symmetrical, unsteady gait, other (gross motor tremor noted; restless leg noted. ) Skin: color nml, no rash, nml palp., dry, other (scalp laceration - 2 cm; pariental hematoma 3 cm) Back: normal inspection Extremities: atraumatic, pelvis stable, hips non-tender, no pedal edema, nml ROM , nml color/temp - Bonilla Coma Score Eyes Open: Spontaneous Speech: Oriented Motor: Obeys Commands Discharge Clincal Impression: Fall Qualifiers: Encounter type: initial encounter Qualified Code(s): W19.XXXA - Unspecified fall, initial encounter Scalp laceration Qualifiers: Encounter type: initial encounter Qualified Code(s): S01.01XA - Laceration without foreign body of scalp, initial encounter Referrals: Юлия Munoz MD [Primary Care Provider] - 2 Days Additional Instructions: Return to ER if if you have any of the follow symptoms: 1.Extremely sleepy or confused 2.Severe or worsening headache 3.Seizure 4.Vomiting, fever >101.5, or stiff neck 5.Loss of control or urine or bowel 6.Trouble walking 7.Use Tylenol every 4 hours as needed for Headache 8.Diet: Start with Clear liquids and advance diet as tolerated. 9.Take all your daily medications as prescribed. You can wash or shower after 24 hours. It is OK to shampoo your hair with the mason in place. Clean the laceration twice a day with hibiclens and rinse with water clean away any scabbed area. Have your stitches removed at your doctors office in 7-10 days. Condition: Stable Disposition: 01 HOME, SELF-CARE Decision to Admit: NO Decision Time: 08:07
--- NOTE | 2017-06-26 08:46 | Diagnostic Imaging Report ---
JUAN MUNOZ ([employer]) - ER [facility] [address] [facility] [address] [place], [place]. [address] Report Submission Date: June 26, 2017 7:46:15 AM CDT Patient Study Name: RONALD CHRISTIANSON Date: June 26, 2017 7:19:44 AM CDT Modality Type: CT\SR Gender: F Description: CT BRAIN W/O CONTRAST : 51 Institution: [facility] Physician: JUAN MUNOZ (OSLE) - ER Examination: CT head without contrast History: FAll, posterior wound (Hx) Comparison exam: None available Technique: Noncontrast head CT protocol. Findings: Ventricles and sulci are consistent for patient age. Cerebrocerebellar parenchyma demonstrates periventricular low attenuation consistent with small vessel disease. No evidence for parenchymal hemorrhage. No evidence for mass or mass effect. No midline shift. No extra axial fluid collections. Partial visualization of the paranasal sinuses demonstrates scattered mucous thickening with bilateral maxillary sinus air fluid levels. Mastoid air cells, orbits, and skull without gross irregularity. Hyperostosis frontalis interna. Posterior scalp hematoma. Impression: Age related changes. No acute parenchymal process. No hemorrhage. Posterior scalp hematoma. Electronically signed on June 26, 2017 7:46:15 AM CDT by: Nik MCMAHON
== END 2017-06-26 08:10 | disposition home or self-care (01) ==
LOC: ED 06:42
DX: S01.01XA Laceration without foreign body of scalp, initial encounter (principal); W19.XXXA Unspecified fall, initial encounter; Y92.009 Unspecified place in unspecified non-institutional (private) residence as the place of occurrence of the external cause; Y93.9 Activity, unspecified; Y99.9 Unspecified external cause status
CPT/HCPCS: 70450; J7030; 12001; 96372